=== PATIENT | male | born 1960 | race Two or more races ===

== ENCOUNTER 2016-10-13 20:13 | Emergency (ER) | payer BC ==
[~2016-10-13] VITALS: Ht 167.6 cm; Wt 68.0 kg
[2016-10-13 20:39] VITALS: BP 132/90
[2016-10-13] MEDS ORDERED: IV NORMAL SALINE 1000ML BAG 1,000 ML IV ONE (20:45)
--- NOTE | 2016-10-13 20:50 | PHYS DOC ---
Past Medical History Past Medical History: No Pertinent History, Diabetes-Type I Past Surgical History: Appendectomy Alcohol Use: Heavy Drug Use: None Adult General Chief Complaint Chief Complaint: ALCOHOL INTOXICATION HPI HPI Patient is a 56 year old male who presents with tremor, anxiety, alcohol withdrawal. No recent trauma. Last drink of beer was earlier today. No reported history of seizures but does get tremulous severe does not drink daily. Denies chest pain shortness breath or abdominal pain. Denies fever Review of Systems Review of Systems Constitutional: Denies fever or chills [] Eyes: Denies change in visual acuity, redness, or eye pain [] HENT: Denies nasal congestion or sore throat [] Respiratory: Denies cough or shortness of breath [] Cardiovascular: No additional information not addressed in HPI [] GI: Denies abdominal pain, nausea, vomiting, bloody stools or diarrhea [] : Denies dysuria or hematuria [] Musculoskeletal: Denies back pain or joint pain [] Integument: Denies rash or skin lesions [] Neurologic: Denies headache, focal weakness or sensory changes [] Endocrine: Denies polyuria or polydipsia [] Current Medications Current Medications Current Medications Medications (Trade) Dose Ordered Sig/Joann Start Time Stop Time Status Last Admin Dose Admin Lorazepam (Ativan) 1 mg 1X ONCE 10/13/16 20:45 10/13/16 20:46 DC 10/13/16 21:26 1 MG Sodium Chloride 1,000 ml @ 1,000 mls/hr 1X ONCE 10/13/16 20:45 10/13/16 21:44 DC 10/13/16 21:26 1,000 MLS/HR Allergies Allergies Allergies Coded Allergies Type Severity Reaction Last Updated Verified No Known Drug Allergies 07/05/15 No Physical Exam Physical Exam Constitutional: Well developed, well nourished, no acute distress, non-toxic appearance. [] HENT: Normocephalic, atraumatic, bilateral external ears normal, oropharynx moist, no oral exudates, nose normal. [] Eyes: PERRLA, EOMI, conjunctiva normal, no discharge. [] Neck: Normal range of motion, no tenderness, supple, no stridor. [] Cardiovascular:Heart rate tachycardic, regular rhythm, no murmur [] Lungs & Thorax: Bilateral breath sounds clear to auscultation [] Abdomen: Bowel sounds normal, soft, no tenderness, no masses, no pulsatile masses. [] Skin: Warm, dry, no erythema, no rash. [] Back: No tenderness, no CVA tenderness. [] Extremities: No tenderness, no cyanosis, no clubbing, ROM intact, no edema. [] Neurologic: Alert and oriented X 3, normal motor function, normal sensory function, no focal deficits noted. Anxious with slight tremor consistent with alcohol withdrawal [] Psychologic: Affect normal, judgement normal, mood normal. [] Current Patient Data Vital Signs Vital Signs Date Time Temp Pulse Resp B/P (MAP) Pulse Ox O2 Delivery O2 Flow Rate FiO2 10/13/16 20:39 98.4 125 22 132/90 (104) 98 Room Air 98.4 Lab Values Laboratory Tests Test 10/13/16 20:39 10/13/16 20:40 Glucose (Fingerstick) 158 mg/dL (70-99) H White Blood Count 7.0 x10^3/uL (4.0-11.0) Red Blood Count 5.46 x10^6/uL (4.30-5.70) Hemoglobin 19.1 g/dL (13.0-17.5) H Hematocrit 53.3 % (39.0-53.0) H Mean Corpuscular Volume 98 fL (79-100) Mean Corpuscular Hemoglobin 35 pg (25-35) Mean Corpuscular Hemoglobin Concent 36 g/dL (31-37) Red Cell Distribution Width 15.3 % (11.5-14.5) H Platelet Count 236 x10^3/uL (140-400) Neutrophils (%) (Auto) 54 % (31-73) Lymphocytes (%) (Auto) 37 % (24-48) Monocytes (%) (Auto) 7 % (0-9) Eosinophils (%) (Auto) 1 % (0-3) Basophils (%) (Auto) 1 % (0-3) Neutrophils # (Auto) 3.8 x10^3uL (1.8-7.7) Lymphocytes # (Auto) 2.6 x10^3/uL (1.0-4.8) Monocytes # (Auto) 0.5 x10^3/uL (0.0-1.1) Eosinophils # (Auto) 0.1 x10^3/uL (0.0-0.7) Basophils # (Auto) 0.1 x10^3/uL (0.0-0.2) Sodium Level 142 mmol/L (136-145) Potassium Level 3.9 mmol/L (3.5-5.1) Chloride Level 101 mmol/L (98-107) Carbon Dioxide Level 27 mmol/L (21-32) Anion Gap 14 (6-14) Blood Urea Nitrogen 6 mg/dL (8-26) L Creatinine 0.7 mg/dL (0.7-1.3) Estimated GFR (Cockcroft-Gault) 116.7 BUN/Creatinine Ratio 9 (6-20) Glucose Level 163 mg/dL (70-99) H Calcium Level 8.4 mg/dL (8.5-10.1) L Magnesium Level 2.3 mg/dL (1.8-2.4) Total Bilirubin 0.6 mg/dL (0.2-1.0) Aspartate Amino Transferase (AST) 35 U/L (15-37) Alanine Aminotransferase (ALT) 20 U/L (16-63) Alkaline Phosphatase 71 U/L (46-116) Troponin I Quantitative < 0.017 ng/mL (0.000-0.055) Total Protein 8.0 g/dL (6.4-8.2) Albumin 4.1 g/dL (3.4-5.0) Albumin/Globulin Ratio 1.1 (1.0-1.7) Laboratory Tests 10/13/16 20:40 Laboratory Tests 10/13/16 20:40 EKG EKG [] Radiology/Procedures Radiology/Procedures [] Course & Med Decision Making Course & Med Decision Making Pertinent Labs and Imaging studies reviewed. (See chart for details) Patient is anxious with some tremulousness consistent with alcohol withdrawal we will treat with IV fluids and Ativan and check basic labs including a magnesium level. Time 21:50 PM reexamination: Patient is dramatically improved after Ativan and IV fluids. He reports that he is committed to quitting drinking we will prescribe him the Suprax taper counseled the patient and his son that he cannot drink alcohol and take the serax.it may stop his breathing. Dragon Disclaimer Dragon Disclaimer This electronic medical record was generated, in whole or in part, using a voice recognition dictation system. Departure Departure Impression: Primary Impression: Alcohol withdrawal Additional Impression: Alcohol abuse Disposition: 01 HOME, SELF-CARE Condition: IMPROVED Referrals: UNKNOWN PCP NAME (PCP) Patient Instructions: Alcohol Withdrawal, Clen-eb-Stdl Additional Instructions: Absolutely do not mix the Serax with alcohol or beer. Scripts Oxazepam (OXAZEPAM) 15 Mg Capsule 15 MG PO see instructions Y for ALCOHOL WITHDRAWAL for 10 Days, #46 CAP take 2 pills four times daily for two days; take 2 pills three times daily for two days; take 2 pills two times per day for two days; take 1 pill threee times per day for two days; take 1 pill twice daily for one day; take one pill daily for two days HOLD if really sleepy, do NOT mix with alcohol or beer!!! Prov: MAT ROGERS MD 10/13/16 Problem Qualifiers MAT ROGERS MD Oct 13, 2016 20:50
[2016-10-13 20:53] LABS: BASO # 0.1 x10^3/uL (0.0-0.2); BASO % 1 % (0-3); EOS % 1 % (0-3); HEMATOCRIT 53.3 % (39.0-53.0); HEMOGLOBIN 19.1 g/dL (13.0-17.5); LYMPH # 2.6 x10^3/uL (1.0-4.8); LYMPH % 37 % (24-48); MEAN CORPUSCULAR HEMOGLOBIN 35 pg (25-35); MEAN CORPUSCULAR HGB CONC 36 g/dL (31-37); MEAN CORPUSCULAR VOLUME 98 fL (79-100); MONO % 7 % (0-9); NEUT % 54 % (31-73); PLATELET COUNT 236 x10^3/uL (140-400); RED BLOOD COUNT 5.46 x10^6/uL (4.30-5.70); RED CELL DISTRIBUTION WIDTH 15.3 % (11.5-14.5)
[2016-10-13 21:01] LABS: CALCIUM 8.4 mg/dL (8.5-10.1); CREATININE 0.7 mg/dL (0.7-1.3); GFR 116.7; POTASSIUM 3.9 mmol/L (3.5-5.1)
[2016-10-13 21:09] LABS: ALBUMIN 4.1 g/dL (3.4-5.0); ALBUMIN/GLOBULIN RATIO 1.1 (1.0-1.7); MAGNESIUM 2.3 mg/dL (1.8-2.4); TOTAL BILIRUBIN 0.6 mg/dL (0.2-1.0)
[2016-10-13] MEDS ORDERED: OXAZ15CA PO (22:08)
--- NOTE | 2016-10-14 06:28 | EKG ---
[facility] [address] [place] [address] Test Date: 2016-10-13 Test Time: 20:34:10 Pat Name: SUSAN GALLO Department: Room: Gender: M Supervisor [employer]: : 1960 Requested By: MAT ROGERS Order Number: [id number] Reading MD: Measurements Intervals [place] Rate: 132 P: 52 MI: 110 QRS: 58 QRSD: 78 T: 15 QT: 296 QTc: 442 Interpretive Statements SINUS TACHYCARDIA LEFT ATRIAL ABNORMALITY QRS(T) CONTOUR ABNORMALITY CONSIDER ANTEROSEPTAL MYOCARDIAL DAMAGE ABNORMAL ECG RI6.01 No previous ECG available for comparison
== END 2016-10-13 22:53 | disposition home or self-care (01) ==
LOC: ER 20:13
DX: F10.239 Alcohol dependence with withdrawal, unspecified (principal); F10.10 Alcohol abuse, uncomplicated; F41.9 Anxiety disorder, unspecified; R25.1 Tremor, unspecified; E10.8 Type 1 diabetes mellitus with unspecified complications; Z90.49 Acquired absence of other specified parts of digestive tract
CPT/HCPCS: 36415; 80053; 82962; 83735; 84484; 85027; 93005; 96361; 96374; 99285; J2060; J7030

== ENCOUNTER 2018-06-04 17:33 | Emergency (ER) | payer BC ==
[~2018-06-04] VITALS: Ht 172.7 cm; Wt 68.0 kg
[~2018-06-04 17:33] MED LIST: OXAZ15CA3 PO
--- NOTE | 2018-06-04 18:20 | PHYS DOC ---
Past Medical History Past Medical History: Diabetes-Type I Past Surgical History: Appendectomy Smoking: Cigarettes Alcohol Use: Heavy Drug Use: None Adult General Chief Complaint Chief Complaint: ABDOMINAL PAIN HPI HPI Patient is a 58-year-old male who presents to the emergency department for evaluation. He states for the past week or so he has had right lower abdominal discomfort. He has had some nausea today, but no vomiting. He has not had any diarrhea, constipation, black or bloody stools, chest pain, or shortness of breath. There are no alleviating or exacerbating factors to his symptoms. He has not had similar pain to this in the past. Review of his chart reveals that he does have a history of all abuse, but he states he has stopped drinking this past February. Review of Systems Review of Systems Constitutional: Denies fever or chills [] Eyes: Denies change in visual acuity, redness, or eye pain [] HENT: Denies nasal congestion or sore throat [] Respiratory: Denies cough or shortness of breath [] Cardiovascular: The patient denies any shortness of breath, chest pain, palpitations, or orthopnea [] GI: No additional information not addressed in HPI [] : Denies dysuria or hematuria, denies genital pain [] Musculoskeletal: Denies back pain or joint pain [] Integument: Denies rash or skin lesions [] Neurologic: Denies headache, focal weakness or sensory changes [] Endocrine: Denies polyuria or polydipsia [] All other systems were reviewed and found to be within normal limits, except as documented in this note. Current Medications Current Medications Current Medications Medications (Trade) Dose Ordered Sig/[facility] Start Time Stop Time Status Last Admin Dose Admin Acetaminophen (Tylenol) 1,000 mg 1X ONCE 06/04/18 18:30 06/04/18 18:31 DC 06/04/18 18:50 1,000 MG Info (CONTRAST GIVEN -- Rx MONITORING) 1 each PRN DAILY PRN 06/04/18 19:00 06/06/18 18:59 Iohexol (Omnipaque 300 Mg/ml) 75 ml 1X ONCE 06/04/18 19:30 06/04/18 19:31 DC 06/04/18 19:11 75 ML Sodium Chloride 1,000 ml @ 1,000 mls/hr Q1H 06/04/18 18:30 06/04/18 19:29 DC 06/04/18 18:50 1,000 MLS/HR Allergies Allergies Allergies Coded Allergies Type Severity Reaction Last Updated Verified No Known Drug Allergies 07/05/15 No Physical Exam Physical Exam PHYSICAL EXAM: CONSTITUTIONAL: Well developed, well nourished HEAD: normocephalic, atraumatic EENT: PERRL, EOMI. Conjunctivae normal color, sclerae non-icteric; moist mucous membranes. NECK: Supple, non-tender; no meningismus. LUNGS: Lungs CTA, breathing even and unlabored. Normal air movement. HEART: Regular rate and rhythm, no murmur CHEST: No deformity; non-tender ABDOMEN: The abdomen is soft, there is no definite reproducible abdominal tenderness to palpation, there is no rebound or guarding, normal bowel sounds are present, there is an appendectomy started right lower quadrant, no masses or bruits. EXTREM: Normal ROM; no deformity, no calf tenderness. Normal pulses palpable in all extremities. There is no pedal edema. SKIN: No rash; no diaphoresis NEURO: Alert; normal speech and cognition; CN's grossly intact; strength grossly intact without focal deficit. BACK: There is very mild right-sided CVA TTP. GENITOURINARY: There are no palpable hernias, normal genitalia. Current Patient Data Vital Signs Vital Signs Date Time Temp Pulse Resp B/P (MAP) Pulse Ox O2 Delivery O2 Flow Rate FiO2 06/04/18 19:35 74 20 165/76 (105) 99 Room Air 06/04/18 18:55 97.0 06/04/18 18:10 97.8 97.8 Lab Values Laboratory Tests Test 06/04/18 18:25 06/04/18 18:30 Urine Collection Type Unknown Urine Color Yellow Urine Clarity Clear Urine pH 5.5 Urine Specific [place] 1.010 Urine Protein Negative mg/dL (NEG-TRACE) Urine Glucose (UA) Negative mg/dL (NEG) Urine Ketones (Stick) Negative mg/dL (NEG) Urine Blood Small (NEG) Urine Nitrite Negative (NEG) Urine Bilirubin Negative (NEG) Urine Urobilinogen Dipstick 1.0 mg/dL (0.2 mg/dL) Urine Leukocyte Esterase Negative (NEG) Urine RBC 6-10 /HPF (0-2) Urine WBC Occ /HPF (0-4) Urine Squamous Epithelial Cells Occ /LPF Urine Bacteria 0 /HPF (0-FEW) Urine Mucus Slight /LPF Urine Opiates Screen Neg (NEG) Urine Methadone Screen Neg (NEG) Urine Barbiturates Neg (NEG) Urine Phencyclidine Screen Neg (NEG) Urine Amphetamine/Methamphetamine Neg (NEG) Urine Benzodiazepines Screen Neg (NEG) Urine Cocaine Screen Neg (NEG) Urine Cannabinoids Screen Neg (NEG) Urine Ethyl Alcohol Neg (NEG) White Blood Count 5.7 x10^3/uL (4.0-11.0) Red Blood Count 5.56 x10^6/uL (4.30-5.70) Hemoglobin 18.3 g/dL (13.0-17.5) H Hematocrit 54.6 % (39.0-53.0) H Mean Corpuscular Volume 98 fL (79-100) Mean Corpuscular Hemoglobin 33 pg (25-35) Mean Corpuscular Hemoglobin Concent 34 g/dL (31-37) Red Cell Distribution Width 14.0 % (11.5-14.5) Platelet Count 257 x10^3/uL (140-400) Neutrophils (%) (Auto) 49 % (31-73) Lymphocytes (%) (Auto) 38 % (24-48) Monocytes (%) (Auto) 9 % (0-9) Eosinophils (%) (Auto) 3 % (0-3) Basophils (%) (Auto) 1 % (0-3) Neutrophils # (Auto) 2.8 x10^3uL (1.8-7.7) Lymphocytes # (Auto) 2.2 x10^3/uL (1.0-4.8) Monocytes # (Auto) 0.5 x10^3/uL (0.0-1.1) Eosinophils # (Auto) 0.1 x10^3/uL (0.0-0.7) Basophils # (Auto) 0.1 x10^3/uL (0.0-0.2) Sodium Level 139 mmol/L (136-145) Potassium Level 4.1 mmol/L (3.5-5.1) Chloride Level 101 mmol/L (98-107) Carbon Dioxide Level 30 mmol/L (21-32) Anion Gap 8 (6-14) Blood Urea Nitrogen 11 mg/dL (8-26) Creatinine 0.7 mg/dL (0.7-1.3) Estimated GFR (Cockcroft-Gault) 115.8 BUN/Creatinine Ratio 16 (6-20) Glucose Level 94 mg/dL (70-99) Lactic Acid Level 1.1 mmol/L (0.4-2.0) Calcium Level 9.5 mg/dL (8.5-10.1) Total Bilirubin 0.3 mg/dL (0.2-1.0) Aspartate Amino Transferase (AST) 21 U/L (15-37) Alanine Aminotransferase (ALT) 19 U/L (16-63) Alkaline Phosphatase 92 U/L (46-116) Troponin I Quantitative < 0.017 ng/mL (0.000-0.055) Total Protein 7.5 g/dL (6.4-8.2) Albumin 3.9 g/dL (3.4-5.0) Albumin/Globulin Ratio 1.1 (1.0-1.7) Lipase 217 U/L (73-393) Laboratory Tests 06/04/18 18:30 Laboratory Tests 06/04/18 18:30 EKG EKG Normal sinus rhythm at a rate of 72 beats for minute, normal axis, normal intervals, nonspecific ST/T changes, motion artifact is present.[] Radiology/Procedures Radiology/Procedures [PROCEDURE: CT ABD PELV W/ IV CONTRST ONLY CT of the abdomen and pelvis with IV contrast 06/04/2018. Reason for exam: Right lower abdominal pain. History of hysterectomy. CT images were obtained through the abdomen and pelvis using an infusion of 75 mL Omnipaque 300. No oral contrast was given. Exposure: One or more of the following individualized dose reduction techniques were utilized for this examination: 1. Automated exposure control 2. Adjustment of the mA and/or kV according to patient size 3. Use of iterative reconstruction technique. FINDINGS: The lung bases are clear. The liver and spleen are homogeneous in density and normal in configuration. Both kidneys enhance with contrast. There is no apparent mass or obstruction. The adrenal glands are not enlarged. The pancreas has some small calcifications throughout. This could relate to chronic pancreatitis. No acute pancreatic abnormality is seen. There is no apparent retroperitoneal or mesenteric adenopathy. No abdominal mass or inflammatory process is seen. Images through the pelvis show no abnormality of the distal ureters or bladder. The bladder was not well-distended. No pelvic or inguinal adenopathy is seen. There is no apparent pelvic mass or inflammatory process. IMPRESSION: No identified acute abnormality. Possible changes of chronic pancreatitis. ] Course & Med Decision Making Course & Med Decision Making Pertinent Labs and Imaging studies reviewed. (See chart for details) [7:45 PM:Patient remains stable. I discussed test results, the need for close follow-up, and return precautions. I discussed importance of close follow-up with urology for microscopic hematuria. I also discussed importance of close follow-up with the patient's PCP for further blood pressure monitoring and evaluation and treatment.] Dragon Disclaimer Dragon Disclaimer This electronic medical record was generated, in whole or in part, using a voice recognition dictation system. Departure Departure Impression: Primary Impression: Abdominal pain Additional Impression: Microscopic hematuria Disposition: 01 HOME, SELF-CARE Condition: STABLE Referrals: UNKNOWN PCP NAME (PCP) AWA SOUZA MD Patient Instructions: Abdominal Pain, Hematuria, Adult Additional Instructions: Tylenol as needed for pain. Problem Qualifiers KENNY PONCE MD Jun 04, 2018 18:20
[2018-06-04] MEDS ORDERED: IV NORMAL SALINE 1000ML BAG 1,000 ML IV SCH (18:30)
[2018-06-04] MEDS ORDERED: ACETAMINOPHEN 500 MG TABLET PO ONE (18:30)
[2018-06-04 18:43] LABS: BASO # 0.1 x10^3/uL (0.0-0.2); BASO % 1 % (0-3); EOS # 0.1 x10^3/uL (0.0-0.7); EOS % 3 % (0-3); HEMATOCRIT 54.6 % (39.0-53.0); HEMOGLOBIN 18.3 g/dL (13.0-17.5); LYMPH # 2.2 x10^3/uL (1.0-4.8); LYMPH % 38 % (24-48); MEAN CORPUSCULAR HEMOGLOBIN 33 pg (25-35); MEAN CORPUSCULAR HGB CONC 34 g/dL (31-37); MEAN CORPUSCULAR VOLUME 98 fL (79-100); MONO # 0.5 x10^3/uL (0.0-1.1); MONO % 9 % (0-9); NEUT # 2.8 x10^3uL (1.8-7.7); NEUT % 49 % (31-73); PLATELET COUNT 257 x10^3/uL (140-400); RED BLOOD COUNT 5.56 x10^6/uL (4.30-5.70); WHITE BLOOD COUNT 5.7 x10^3/uL (4.0-11.0)
[2018-06-04 18:45] LABS: BILIRUBIN,URINE NEGATIVE (NEG); CLARITY,URINE CLEAR; COLOR,URINE YELLOW; NITRITE,URINE NEGATIVE (NEG); PH,URINE 5.5; PROTEIN,URINE NEGATIVE (NEG-TRACE)
[2018-06-04 18:49] LABS: BACTERIA,URINE 0 /HPF (0-FEW); SQUAMOUS EPITHELIAL CELL,UR OCC /LPF; WBC,URINE OCC /HPF (0-4)
[2018-06-04 18:51] LABS: CALCIUM 9.5 mg/dL (8.5-10.1); CREATININE 0.7 mg/dL (0.7-1.3); GFR 115.8; POTASSIUM 4.1 mmol/L (3.5-5.1)
[2018-06-04 18:51] LABS: BARBITURATES NEG (NEG); BENZODIAZEPINES NEG (NEG); CANNABINOIDS NEG (NEG); COCAINE NEG (NEG); METHADONE NEG (NEG); OPIATES NEG (NEG); PHENCYCLIDINE NEG (NEG)
[2018-06-04 18:52] LABS: AMPHETAMINE/METHAMPHETAMINE NEG (NEG)
[2018-06-04 18:57] LABS: ALBUMIN 3.9 g/dL (3.4-5.0); ALBUMIN/GLOBULIN RATIO 1.1 (1.0-1.7); TOTAL BILIRUBIN 0.3 mg/dL (0.2-1.0); TOTAL PROTEIN 7.5 g/dL (6.4-8.2)
[2018-06-04] MEDS ORDERED: CONTRAST GIVEN. MC PRN (19:00)
[2018-06-04] MEDS ORDERED: IOHEXOL 300 MG/ML 100ML VIAL. IV ONE (19:30)
--- NOTE | 2018-06-04 19:37 | RAD ---
CT of the abdomen and pelvis with IV contrast 06/04/2018. Reason for exam: Right lower abdominal pain. History of hysterectomy. CT images were obtained through the abdomen and pelvis using an infusion of 75 mL Omnipaque 300. No oral contrast was given. Exposure: One or more of the following individualized dose reduction techniques were utilized for this examination: 1. Automated exposure control 2. Adjustment of the mA and/or kV according to patient size 3. Use of iterative reconstruction technique. FINDINGS: The lung bases are clear. The liver and spleen are homogeneous in density and normal in configuration. Both kidneys enhance with contrast. There is no apparent mass or obstruction. The adrenal glands are not enlarged. The pancreas has some small calcifications throughout. This could relate to chronic pancreatitis. No acute pancreatic abnormality is seen. There is no apparent retroperitoneal or mesenteric adenopathy. No abdominal mass or inflammatory process is seen. Images through the pelvis show no abnormality of the distal ureters or bladder. The bladder was not well-distended. No pelvic or inguinal adenopathy is seen. There is no apparent pelvic mass or inflammatory process. IMPRESSION: No identified acute abnormality. Possible changes of chronic pancreatitis. Electronically signed by: Enrrique Nation Jr., MD (06/04/2018 7:34 PM) [facility]
[2018-06-04 20:15] VITALS: BP 168/78
--- NOTE | 2018-06-05 08:06 | EKG ---
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
== END 2018-06-04 20:15 | disposition home or self-care (01) ==
LOC: ER 17:33
DX: R10.31 Right lower quadrant pain (principal); R31.29 Other microscopic hematuria; E10.9 Type 1 diabetes mellitus without complications; F17.210 Nicotine dependence, cigarettes, uncomplicated; Z90.89 Acquired absence of other organs
CPT/HCPCS: 36415; 74177; 80053; 80307; 81001; 83605; 83690; 84484; 85025; 93005; 99284; J7030; Q9967